=== PATIENT | male | born 1950 | race Caucasian/White ===

== ENCOUNTER → 2024-04-23 | Outpatient (CLI) | payer BC, MEDICARE ==
[2024-04-23 07:35] LABS: African American GFR (CKD) >90 (>60 ml/min/1.73 sqM); Blood Urea Nitrogen 16 mg/dL (9-20); Non-African American GFR(CKD) 86 (>60 ml/min/1.73 sqM)
--- NOTE | 2024-04-23 11:11 | CT ---
EXAMINATION TYPE: CT angio neck DATE OF EXAM: 04/23/2024 HISTORY: Carotid stenosis COMPARISON: None CT DLP: 335 mGycm. Automated Exposure Control for Dose Reduction was Utilized. TECHNIQUE: CTA scan of the neck is performed without and with IV Contrast, patient injected with 65 ml mL of Isovue 370, axial images are obtained, coronal and sagittal reformatted images are reviewed. Three-D reconstructed images are created on an independent workstation and reviewed. Source images are reviewed. FINDINGS: Carotid/Vascular Structures: There is a 3 vessel arch. The right common carotid artery is occluded at its origin. Left Common carotid artery bifurcates into internal and external carotid arteries without significant flow limiting stenosis. Right common, and internal carotid arteries not visualized. Some collateral flow may reconstitute the external carotid artery vessels. Vertebral arteries are codominant. Left Internal carotid arteries and vertebral arteries is patent to the skull base. Right internal ca rotid artery is not identified with contrast during this exam. IMPRESSION: 1. Obstructed right internal carotid artery from the common carotid artery to the skull base. 2. NASCET criteria was used in interpretation of this exam?
== END | disposition home or self-care (01) ==
LOC: RADCTMAIN 06:54
PROVIDERS: ATTEND Family Medicine
DX: R09.89 Other specified symptoms and signs involving the circulatory and respiratory systems (principal)
CPT/HCPCS: 82565; 84520; 70498; 36415; Q9967

== ENCOUNTER → 2025-05-31 | Outpatient (CLI) | payer MEDICARE ==
[2025-05-31 16:58] LABS: African American GFR (CKD) 85 (>60 ml/min/1.73 sqM); Blood Urea Nitrogen 17 mg/dL (9-20); Non-African American GFR(CKD) 74 (>60 ml/min/1.73 sqM)
--- NOTE | 2025-05-31 23:44 | CT ---
EXAMINATION TYPE: CT angio neck DATE OF EXAM: 05/31/2025 6:05 PM COMPARISON: None. CLINICAL INDICATION: Male, 75 years old with history of I65.23 CAROTID STENOSIS, Carotid stenosis. TECHNIQUE: CTA scan is performed with axial images are obtained, coronal and sagittal reformatted cynthia ges are reviewed. MIP images created on a separate workstation and submitted for review. 3-D reconstr ucted images are created on an independent workstation and reviewed. Source images are reviewed. ELIAZAR CET criteria was used in interpretation of this exam? Contrast used:65 ml mL of Isovue 370 with IV Contrast, (none if empty) Oral contrast used: (none if empty) CT DLP: 271.8 mGycm, Automated exposure control for dose reduction was used. FINDINGS: Carotid/Vascular Structures: There is a 3 vessel arch. The right common carotid artery appears to be obstructed near its origin. There appears to be large a mount of calcification at the bifurcation. Very minimal thread of flow may be present from the agriculture internship al carotid artery to the skull base. Consider this may be retrograde flow. Left Common carotid artery bifurcates into internal and external carotid arteries. There is a 47% pina rowing of the left internal carotid artery origin. The left internal carotid artery is patent to the skull base. Vertebral arteries are codominant. IMPRESSION: 1. Suspected obstruction of the right common carotid artery. Some minimal retrograde flow may be pres ent within the right internal carotid artery. 2. Mild stenosis of the left internal carotid artery origin measuring 47%. This may be increasing fro m comparison [facility], , 05/31/2025 11:42 PM
== END | disposition home or self-care (01) ==
LOC: RADCTMAIN 16:08
PROVIDERS: ATTEND Surgery
DX: I65.22 Occlusion and stenosis of left carotid artery (principal)
CPT/HCPCS: 82565; 84520; 70498; 36415; Q9967